=== PATIENT | male | born 1955 | race African-American/Black ===

== ENCOUNTER 2017-08-16 17:00 | Emergency (ER) | payer OTHER ==
[~2017-08-16] VITALS: Ht 170.2 cm; Wt 93.7 kg
[~2017-08-16 17:00] MED LIST: DAILY VALUE1 EACH PO; KEFLEX500 MG PO; NAPROSYN500 MG PO
[2017-08-16 18:46] VITALS: BP 172/90
== END 2017-08-16 18:58 | disposition home or self-care (01) ==
LOC: EME 17:00
DX: S40.011A Contusion of right shoulder, initial encounter (principal); W01.0XXA Fall on same level from slipping, tripping and stumbling without subsequent striking against object, initial encounter; Y92.009 Unspecified place in unspecified non-institutional (private) residence as the place of occurrence of the external cause
CPT/HCPCS: 73030; 73060; 99281; 99283